=== PATIENT | female | born 1985 | race African-American/Black ===

== ENCOUNTER 2020-08-28 16:38 | Inpatient (IN) | payer MEDICARE, MEDICAID ==
[~2020-08-28] VITALS: Ht 165.1 cm; Wt 112.9 kg
[2020-08-28] MEDS ORDERED: ZOLPIDEM TARTRATE 10 MG TABLET PO PRN (20:45)
[2020-08-28] MEDS ORDERED: HALOPERIDOL 5 MG TABLET PO PRN (20:45)
[2020-08-28] MEDS ORDERED: LORazepam 2 MG TABLET PO PRN (20:45)
[2020-08-28 21:50] VITALS: BP 139/80
[2020-08-29 07:58] LABS: BASOPHILS % (AUTO) 0.9 % (0.0-2.0); HEMATOCRIT 37.5 % (36-46); HEMOGLOBIN 12.4 g/dL (12.0-16.0); LYMPHOCYTES # (AUTO) 1.9 K/uL (1.0-4.8); LYMPHOCYTES % (AUTO) 39.4 % (22.0-44.0); MEAN CORPUSCULAR HEMOGLOBIN 28.6 pg (26.0-34.0); MEAN CORPUSCULAR VOLUME 87 fL (80-100); MONOCYTES # (AUTO) 0.6 K/uL (0.1-1.0); MONOCYTES % (AUTO) 12.4 % (2.0-9.0); NEUTROPHILS % (AUTO) 41.3 % (40.0-70.0); PLATELET COUNT (AUTO) 336 K/uL (150-450); RED BLOOD CELL COUNT(AUTO) 4.33 MIL/uL (4.00-5.20); RED CELL DISTRIBUTION WIDTH 15.5 % (11.5-14.5)
[2020-08-29 08:16] LABS: HEMOGLOBIN A1C 5.8 % (3.8-5.6)
[2020-08-29 08:21] LABS: ALANINE AMINOTRANSFERASE 20 U/L (12-78); ALBUMIN 3.2 g/dL (3.4-5.0); ALKALINE PHOSPHATASE 51 U/L (46-116); ANION GAP 13 mmol/L (8-16); ASPARTATE AMINOTRANSFERASE 12 U/L (15-37); BILIRUBIN,TOTAL 0.8 mg/dL (0.1-1.0); CALCIUM, TOTAL 8.4 mg/dL (8.8-10.5); CARBON DIOXIDE 25 mmol/L (22-29); CHLORIDE 106 mmol/L (98-107); CHOL/HDL RATIO 3.4 (3.9-5.7); CHOLESTEROL 135 mg/dL (131-200); CREATININE 0.66 mg/dL (0.60-1.30); FREE T4 (FREE THYROXINE) 1.28 ng/dL (0.76-1.46); GLOMERULAR FILTR. RATE CALC > 60 mL/min (>60); GLUCOSE,RANDOM 86 mg/dL (70-110); HDL CHOLESTEROL 40 mg/dL (40-60); LDL CHOL (CALC.) 85 mg/dL (0-130); POTASSIUM 4.2 mmol/L (3.5-5.1); SODIUM SERUM 144 mmol/L (136-145); THYROID STIMULATING HORMONE 0.85 uIU/mL (0.36-3.74); TOTAL PROTEIN, SERUM 6.3 g/dL (6.4-8.2); TRIGLYCERIDES 50 mg/dL (15-150); UREA NITROGEN, BLOOD 10 mg/dL (7-18)
[2020-08-29 08:37] VITALS: BP 133/96
[2020-08-29] MEDS ORDERED: OLANZapine 5 MG TABLET PO SCH (10:30)
[2020-08-29] MEDS: OLANZapine 5 MG TABLET PO SCH ×2 (10:42→16:45)
[2020-08-29 16:09] VITALS: BP 107/62
[2020-08-29] MEDS ORDERED: MAGNESIUM HYDROXIDE SUSPENSION 30 ML UDCUP PO PRN (19:45)
[2020-08-29] MEDS ORDERED: ACETAMINOPHEN 325 MG TABLET PO PRN (19:45)
[2020-08-29] MEDS ORDERED: PETROLATUM,WHITE 28 GM JELLY TP PRN (19:45)
[2020-08-29] MEDS ORDERED: MAG HYDROX/AL HYDROX/SIMETH ES 30 ML SUSPENSION UDCUP PO PRN (19:45)
[2020-08-29] MEDS ORDERED: IBUPROFEN 400 MG TABLET PO PRN (19:45)
[2020-08-29] MEDS ORDERED: DOCUSATE SODIUM 100 MG CAPSULE PO PRN (19:45)
[2020-08-29] MEDS ORDERED: CloNIDine HCL 0.1 MG TABLET PO PRN (19:45)
[2020-08-29] MEDS ORDERED: NICOTINE 14 MG/24 HOUR PATCH TD PRN (19:45)
[2020-08-29] MEDS ORDERED: ONDANSETRON HCL 4 MG TABLET PO PRN (19:45)
[2020-08-29] MEDS ORDERED: LOPERAMIDE HCL 2 MG CAPSULE PO PRN (19:45)
[2020-08-29] MEDS ORDERED: GuaiFENesin/D-METHORPHAN [SUGAR-FREE] 200-20MG/10 ML SYRUP UDCUP PO PRN (19:45)
[2020-08-29] MEDS ORDERED: ALBUTEROL SULFATE HFA 90 MCG/PUFF 8 GM INHALER IH PRN (19:45)
[2020-08-30 00:21] VITALS: BP 128/82
[2020-08-30 08:23] VITALS: BP 137/68
[2020-08-30] MEDS: OLANZapine 5 MG TABLET PO SCH ×3 (09:00→18:44)
[2020-08-30 16:14] VITALS: BP 122/67
[2020-08-31 00:08] VITALS: BP 130/76
[2020-08-31] MEDS: OLANZapine 5 MG TABLET PO SCH ×2 (08:03→16:48)
[2020-08-31 08:11] VITALS: BP 148/91
[2020-08-31 12:10] VITALS: BP 137/84
[2020-08-31 16:09] VITALS: BP 124/72
[2020-09-01 00:08] VITALS: BP 138/80
[2020-09-01 08:14] VITALS: BP 152/90
[2020-09-01] MEDS: OLANZapine 5 MG TABLET PO SCH (08:34)
[2020-09-01] MEDS ORDERED: OLAN5TAB2 PO (12:21)
== END 2020-09-01 16:10 | disposition home or self-care (01) | DRG 885 ==
LOC: B2X 20:43
PROVIDERS: ADMIT Psychiatry & Neurology Psychiatry; ATTEND Psychiatry & Neurology Psychiatry
DX: F20.9 Schizophrenia, unspecified (principal); Z68.41 Body mass index [BMI] 40.0-44.9, adult; F94.0 Selective mutism; R73.03 Prediabetes; E83.51 Hypocalcemia; E66.9 Obesity, unspecified; Z59.0 Homelessness
CPT/HCPCS: 83036; 84439; 84443

== ENCOUNTER 2020-09-02 17:53 | Emergency (ER) | payer MEDICARE, MEDICAID ==
[~2020-09-02] VITALS: Ht 172.7 cm; Wt 112.7 kg
[~2020-09-02 17:53] MED LIST: OLAN5TAB2 PO
[2020-09-02] MEDS ORDERED: OLANZapine 5 MG TABLET PO ONE (19:15)
[2020-09-02 19:33] LABS: BASOPHILS % (AUTO) 0.7 % (0.0-2.0); EOSINOPHILS % (AUTO) 2.8 % (1.0-6.0); HEMOGLOBIN 13.7 g/dL (12.0-16.0); LYMPHOCYTES # (AUTO) 2.4 K/uL (1.0-4.8); LYMPHOCYTES % (AUTO) 33.7 % (22.0-44.0); MEAN CORPUSCULAR HEMOGLOBIN 28.8 pg (26.0-34.0); MEAN CORPUSCULAR HGB CONC 33.3 G/dL (31.0-37.0); MEAN CORPUSCULAR VOLUME 86 fL (80-100); MONOCYTES # (AUTO) 0.6 K/uL (0.1-1.0); MONOCYTES % (AUTO) 8.9 % (2.0-9.0); NEUTROPHILS # (AUTO) 3.8 K/uL (1.8-7.7); NEUTROPHILS % (AUTO) 53.9 % (40.0-70.0); PLATELET COUNT (AUTO) 386 K/uL (150-450); RED BLOOD CELL COUNT(AUTO) 4.75 MIL/uL (4.00-5.20); RED CELL DISTRIBUTION WIDTH 15.6 % (11.5-14.5)
[2020-09-02 19:38] LABS: ANION GAP 9 mmol/L (8-16); CALCIUM, TOTAL 9.3 mg/dL (8.8-10.5); CARBON DIOXIDE 28 mmol/L (22-29); CHLORIDE 102 mmol/L (98-107); GLOMERULAR FILTR. RATE CALC > 60 mL/min (>60); GLUCOSE,RANDOM 91 mg/dL (70-110); POTASSIUM 3.7 mmol/L (3.5-5.1); SODIUM SERUM 139 mmol/L (136-145); UREA NITROGEN, BLOOD 7 mg/dL (7-18)
[2020-09-02 19:46] LABS: ALANINE AMINOTRANSFERASE 23 U/L (12-78); ALBUMIN 4.2 g/dL (3.4-5.0); ALKALINE PHOSPHATASE 58 U/L (46-116); ASPARTATE AMINOTRANSFERASE 13 U/L (15-37); BILIRUBIN,TOTAL 1.4 mg/dL (0.1-1.0); HCG,QUANTITATIVE < 1 mIU/mL (0-6)
[2020-09-02 20:20] VITALS: BP 160/92
== END 2020-09-02 20:22 | disposition home or self-care (01) ==
LOC: EMS 17:56
DX: F20.0 Paranoid schizophrenia (principal); F15.10 Other stimulant abuse, uncomplicated; F17.210 Nicotine dependence, cigarettes, uncomplicated
CPT/HCPCS: 36415; 80053; 84702; 85025; 99284; G0480

== ENCOUNTER 2020-12-28 13:14 | Emergency (ER) | payer MEDICAID, MEDICARE ==
[~2020-12-28] VITALS: Ht 160 cm; Wt 86.4 kg
[~2020-12-28 13:14] MED LIST changes: -OLAN5TAB2 PO; +OLAN5TAB52 PO
[2020-12-28 15:00] LABS: BASOPHILS % (AUTO) 1.3 % (0.0-2.0); EOSINOPHILS % (AUTO) 2.6 % (1.0-6.0); HEMOGLOBIN 11.8 g/dL (12.0-16.0); LYMPHOCYTES # (AUTO) 2.5 K/uL (1.0-4.8); MEAN CORPUSCULAR HEMOGLOBIN 28.2 pg (26.0-34.0); MEAN CORPUSCULAR HGB CONC 32.7 G/dL (31.0-37.0); MEAN CORPUSCULAR VOLUME 86 fL (80-100); MONOCYTES # (AUTO) 0.7 K/uL (0.1-1.0); MONOCYTES % (AUTO) 10.9 % (2.0-9.0); NEUTROPHILS # (AUTO) 3.2 K/uL (1.8-7.7); NEUTROPHILS % (AUTO) 48.2 % (40.0-70.0); PLATELET COUNT (AUTO) 403 K/uL (150-450); RED BLOOD CELL COUNT(AUTO) 4.17 MIL/uL (4.00-5.20); RED CELL DISTRIBUTION WIDTH 14.4 % (11.5-14.5)
[2020-12-28 15:04] LABS: ANION GAP 10 mmol/L (8-16); CALCIUM, TOTAL 8.5 mg/dL (8.8-10.5); CARBON DIOXIDE 26 mmol/L (22-29); CHLORIDE 106 mmol/L (98-107); CREATININE 0.73 mg/dL (0.60-1.30); GLOMERULAR FILTR. RATE CALC > 60 mL/min (>60); GLUCOSE,RANDOM 92 mg/dL (70-110); SODIUM SERUM 142 mmol/L (136-145); UREA NITROGEN, BLOOD 12 mg/dL (7-18)
[2020-12-28 15:10] LABS: ALANINE AMINOTRANSFERASE 18 U/L (12-78); ALBUMIN 3.6 g/dL (3.4-5.0); ALKALINE PHOSPHATASE 53 U/L (46-116); ASPARTATE AMINOTRANSFERASE 13 U/L (15-37); BILIRUBIN,TOTAL 0.3 mg/dL (0.1-1.0)
[2020-12-28 16:37] LABS: AMPHET/METH SCREEN,URINE NEGATIVE (NEGATIVE); BARBITURATE SCREEN, URINE NEGATIVE (NEGATIVE); BENZODIAZEPINES SCREEN,URINE NEGATIVE (NEGATIVE); CANNABINOID SCREEN,URINE NEGATIVE (NEGATIVE); COCAINE SCREEN,URINE NEGATIVE (NEGATIVE); METHADONE SCREEN, URINE NEGATIVE (NEGATIVE); OPIATE SCREEN,URINE NEGATIVE (NEGATIVE)
[2020-12-28 16:38] LABS: PHENCYCLIDINE SCREEN,URINE NEGATIVE (NEGATIVE)
[2020-12-28] MEDS ORDERED: ACETAMINOPHEN 500 MG TABLET PO ONE (18:00)
[2020-12-28 18:05] VITALS: BP 127/80
[2020-12-28 18:07] LABS: COVID AG,FIA SOURCE NASOPHARYNGEAL
== END 2020-12-28 18:58 | disposition home or self-care (01) ==
LOC: EMS 13:14
DX: F20.9 Schizophrenia, unspecified (principal); I10 Essential (primary) hypertension; F17.210 Nicotine dependence, cigarettes, uncomplicated; Z20.822 Contact with and (suspected) exposure to COVID-19
CPT/HCPCS: 36415; 80053; 80307; 85025; 87426; 99284; G0480

== ENCOUNTER 2021-01-15 18:16 | Emergency (ER) | payer MEDICAID ==
[~2021-01-15] VITALS: Ht 160 cm; Wt 100.0 kg
[2021-01-15] MEDS ORDERED: QUET100T PO (19:51)
[2021-01-15 20:04] LABS: APPEARANCE,URINE CLEAR (CLEAR); BILIRUBIN,URINE NEGATIVE (NEGATIVE); GLUCOSE, URINE (UA) NEGATIVE (NEGATIVE); KETONES,URINE NEGATIVE (NEGATIVE); LEUKOCYTE ESTERASE ,URINE NEGATIVE (NEGATIVE); NITRATE,URINE NEGATIVE (NEGATIVE); OCCULT BLOOD,URINE NEGATIVE (NEGATIVE); PH,URINE 5.5 (5.0-8.0); PROTEIN,URINE NEGATIVE (NEGATIVE)
[2021-01-15 20:20] LABS: CANNABINOID SCREEN,URINE NEGATIVE (NEGATIVE); METHADONE SCREEN, URINE NEGATIVE (NEGATIVE); OPIATE SCREEN,URINE NEGATIVE (NEGATIVE)
[2021-01-15 20:32] LABS: AMPHET/METH SCREEN,URINE NEGATIVE (NEGATIVE); BARBITURATE SCREEN, URINE NEGATIVE (NEGATIVE); BENZODIAZEPINES SCREEN,URINE NEGATIVE (NEGATIVE); COCAINE SCREEN,URINE NEGATIVE (NEGATIVE)
[2021-01-15 20:36] LABS: PHENCYCLIDINE SCREEN,URINE NEGATIVE (NEGATIVE)
[2021-01-15 20:40] LABS: BASOPHILS % (AUTO) 1.8 % (0.0-2.0); EOSINOPHILS % (AUTO) 4.2 % (1.0-6.0); HEMATOCRIT 34.8 % (36-46); HEMOGLOBIN 11.1 g/dL (12.0-16.0); LYMPHOCYTES # (AUTO) 2.4 K/uL (1.0-4.8); LYMPHOCYTES % (AUTO) 40.4 % (22.0-44.0); MEAN CORPUSCULAR HEMOGLOBIN 27.9 pg (26.0-34.0); MEAN CORPUSCULAR HGB CONC 31.9 G/dL (31.0-37.0); MEAN CORPUSCULAR VOLUME 87 fL (80-100); MONOCYTES # (AUTO) 0.9 K/uL (0.1-1.0); MONOCYTES % (AUTO) 14.5 % (2.0-9.0); NEUTROPHILS # (AUTO) 2.3 K/uL (1.8-7.7); NEUTROPHILS % (AUTO) 39.1 % (40.0-70.0); PLATELET COUNT (AUTO) 336 K/uL (150-450); RED BLOOD CELL COUNT(AUTO) 3.99 MIL/uL (4.00-5.20); RED CELL DISTRIBUTION WIDTH 15.1 % (11.5-14.5)
[2021-01-15 20:46] LABS: ANION GAP 7 mmol/L (8-16); CALCIUM, TOTAL 8.9 mg/dL (8.8-10.5); CARBON DIOXIDE 28 mmol/L (22-29); CHLORIDE 104 mmol/L (98-107); CREATININE 0.77 mg/dL (0.60-1.30); GLOMERULAR FILTR. RATE CALC > 60 mL/min (>60); GLUCOSE,RANDOM 101 mg/dL (70-110); POTASSIUM 3.9 mmol/L (3.5-5.1); SODIUM SERUM 139 mmol/L (136-145); UREA NITROGEN, BLOOD 15 mg/dL (7-18)
[2021-01-15 20:57] LABS: ALANINE AMINOTRANSFERASE 22 U/L (12-78); ALBUMIN 3.6 g/dL (3.4-5.0); ALKALINE PHOSPHATASE 51 U/L (46-116); ASPARTATE AMINOTRANSFERASE 15 U/L (15-37); BILIRUBIN,TOTAL 0.4 mg/dL (0.1-1.0); HCG,QUANTITATIVE < 1 mIU/mL (0-6); LIPASE 101 U/L (73-393); TOTAL PROTEIN, SERUM 6.9 g/dL (6.4-8.2)
[2021-01-15 21:09] LABS: SQUAMOUS EPITHELIAL CELL,UR Few /LPF (None Seen)
[2021-01-15 21:10] LABS: BACTERIA,URINE Rare /HPF (None Seen); RBC,URINE None Seen /HPF (0-2)
[2021-01-15] MEDS ORDERED: OLANZapine 5 MG RAPDIS TABLET PO ONE (21:15)
[2021-01-15 22:18] VITALS: BP 145/1
== END 2021-01-15 21:30 | disposition home or self-care (01) ==
LOC: EMS 18:16
DX: F20.9 Schizophrenia, unspecified (principal); F17.210 Nicotine dependence, cigarettes, uncomplicated; I10 Essential (primary) hypertension; E05.90 Thyrotoxicosis, unspecified without thyrotoxic crisis or storm; Z85.89 Personal history of malignant neoplasm of other organs and systems; Z79.899 Other long term (current) drug therapy
CPT/HCPCS: 36415; 80053; 80307; 81001; 83690; 84702; 85025; 99284; G0480

== ENCOUNTER 2021-04-29 06:31 | Emergency (ER) | payer MEDICAID ==
[~2021-04-29] VITALS: Ht 170.2 cm; Wt 72.7 kg
[~2021-04-29 06:31] MED LIST changes: -OLAN5TAB52 PO; +QUET100T PO
[2021-04-29 07:20] LABS: EOSINOPHILS % (AUTO) 5.7 % (1.0-6.0); HEMATOCRIT 34.3 % (36-46); HEMOGLOBIN 11.3 g/dL (12.0-16.0); LYMPHOCYTES # (AUTO) 1.4 K/uL (1.0-4.8); LYMPHOCYTES % (AUTO) 21.8 % (22.0-44.0); MEAN CORPUSCULAR HEMOGLOBIN 27.8 pg (26.0-34.0); MEAN CORPUSCULAR HGB CONC 32.9 G/dL (31.0-37.0); MEAN CORPUSCULAR VOLUME 85 fL (80-100); MONOCYTES # (AUTO) 0.9 K/uL (0.1-1.0); MONOCYTES % (AUTO) 14.9 % (2.0-9.0); NEUTROPHILS # (AUTO) 3.5 K/uL (1.8-7.7); NEUTROPHILS % (AUTO) 56.6 % (40.0-70.0); PLATELET COUNT (AUTO) 382 K/uL (150-450); RED BLOOD CELL COUNT(AUTO) 4.06 MIL/uL (4.00-5.20); RED CELL DISTRIBUTION WIDTH 16.1 % (11.5-14.5)
[2021-04-29 07:38] LABS: ANION GAP 6 mmol/L (8-16); CALCIUM, TOTAL 9.4 mg/dL (8.8-10.5); CARBON DIOXIDE 30 mmol/L (22-29); CHLORIDE 104 mmol/L (98-107); CREATININE 0.72 mg/dL (0.60-1.30); GLOMERULAR FILTR. RATE CALC > 60 mL/min (>60); GLUCOSE,RANDOM 92 mg/dL (70-110); POTASSIUM 4.7 mmol/L (3.5-5.1); SODIUM SERUM 140 mmol/L (136-145); UREA NITROGEN, BLOOD 13 mg/dL (7-18)
[2021-04-29 07:39] LABS: COVID AG,FIA SOURCE NASOPHARYNGEAL
[2021-04-29 07:49] LABS: ALANINE AMINOTRANSFERASE 33 U/L (12-78); ALBUMIN 3.7 g/dL (3.4-5.0); ALKALINE PHOSPHATASE 57 U/L (46-116); ASPARTATE AMINOTRANSFERASE 19 U/L (15-37); BILIRUBIN,TOTAL 0.3 mg/dL (0.1-1.0); HCG,QUANTITATIVE < 1 mIU/mL (0-6); TOTAL PROTEIN, SERUM 7.2 g/dL (6.4-8.2)
[2021-04-29 08:40] VITALS: BP 124/69
== END 2021-04-29 09:28 | disposition home or self-care (01) ==
LOC: EMS 06:33
DX: F20.9 Schizophrenia, unspecified (principal); F31.9 Bipolar disorder, unspecified; I10 Essential (primary) hypertension; F17.210 Nicotine dependence, cigarettes, uncomplicated; Z20.822 Contact with and (suspected) exposure to COVID-19; Z79.899 Other long term (current) drug therapy
CPT/HCPCS: 36415; 80053; 84702; 85025; 87426; 99284; G0480

== ENCOUNTER 2021-06-24 22:00 | Inpatient (IN) | payer MEDICARE, MEDICAID ==
[~2021-06-24] VITALS: Ht 170.2 cm; Wt 106.1 kg
[2021-06-24 23:41] LABS: BASOPHILS % (AUTO) 1.1 % (0.0-2.0); EOSINOPHILS % (AUTO) 3.8 % (1.0-6.0); HEMATOCRIT 33.6 % (36-46); HEMOGLOBIN 10.7 g/dL (12.0-16.0); LYMPHOCYTES # (AUTO) 2.6 K/uL (1.0-4.8); MEAN CORPUSCULAR HEMOGLOBIN 25.4 pg (26.0-34.0); MEAN CORPUSCULAR HGB CONC 31.8 G/dL (31.0-37.0); MEAN CORPUSCULAR VOLUME 80 fL (80-100); MONOCYTES # (AUTO) 0.8 K/uL (0.1-1.0); MONOCYTES % (AUTO) 13.5 % (2.0-9.0); NEUTROPHILS # (AUTO) 2.5 K/uL (1.8-7.7); NEUTROPHILS % (AUTO) 39.6 % (40.0-70.0); PLATELET COUNT (AUTO) 418 K/uL (150-450); RED CELL DISTRIBUTION WIDTH 16.7 % (11.5-14.5)
[2021-06-24 23:50] LABS: ANION GAP 5 mmol/L (8-16); CALCIUM, TOTAL 9.1 mg/dL (8.8-10.5); CARBON DIOXIDE 27 mmol/L (22-29); CHLORIDE 105 mmol/L (98-107); CREATININE 0.83 mg/dL (0.60-1.30); GLOMERULAR FILTR. RATE CALC > 60 mL/min (>60); GLUCOSE,RANDOM 95 mg/dL (70-110); SODIUM SERUM 137 mmol/L (136-145); UREA NITROGEN, BLOOD 17 mg/dL (7-18)
[2021-06-25 00:01] LABS: ALANINE AMINOTRANSFERASE 51 U/L (12-78); ALBUMIN 3.8 g/dL (3.4-5.0); ALKALINE PHOSPHATASE 59 U/L (46-116); ASPARTATE AMINOTRANSFERASE 24 U/L (15-37); BILIRUBIN,TOTAL 0.5 mg/dL (0.1-1.0); HCG,QUANTITATIVE < 1 mIU/mL (0-6); TOTAL PROTEIN, SERUM 7.3 g/dL (6.4-8.2)
[2021-06-25 03:35] LABS: COVID AG,FIA SOURCE NASOPHARYNGEAL
[2021-06-25] MEDS ORDERED: INFLUENZA VIRUS VACCINE QVS 2021-22 (6MO+)/PF 60 MCG/0.5 ML SYRINGE IM. ONE (04:45)
[2021-06-25] MEDS ORDERED: ACETAMINOPHEN 325 MG TABLET PO PRN (06:15)
[2021-06-25] MEDS ORDERED: PETROLATUM,WHITE 28 GM JELLY TP PRN (06:15)
[2021-06-25] MEDS ORDERED: LOPERAMIDE HCL 2 MG CAPSULE PO PRN (06:15)
[2021-06-25] MEDS ORDERED: DOCUSATE SODIUM 100 MG CAPSULE PO PRN (06:15)
[2021-06-25] MEDS ORDERED: BENZOCAINE/MENTHOL LOZENGE PO PRN (06:15)
[2021-06-25] MEDS ORDERED: ONDANSETRON HCL 4 MG TABLET PO PRN (06:15)
[2021-06-25] MEDS ORDERED: MAG HYDROX/AL HYDROX/SIMETH ES 30 ML SUSPENSION UDCUP PO PRN (06:15)
[2021-06-25] MEDS ORDERED: BACITRACIN 28 GM OINTMENT TP PRN (06:15)
[2021-06-25] MEDS ORDERED: MAGNESIUM HYDROXIDE SUSPENSION 30 ML UDCUP PO PRN (06:15)
[2021-06-25] MEDS ORDERED: OMEPRAZOLE 20 MG CAPSULE PO PRN (06:15)
[2021-06-25] MEDS ORDERED: CloNIDine HCL 0.1 MG TABLET PO PRN (06:15)
[2021-06-25] MEDS ORDERED: IBUPROFEN 600 MG TABLET PO PRN (06:15)
[2021-06-25] MEDS ORDERED: ALBUTEROL SULFATE HFA 90 MCG/PUFF 8 GM INHALER IH PRN (06:15)
[2021-06-25 16:02] VITALS: BP 146/84
[2021-06-26 05:56] VITALS: BP 132/81
[2021-06-26 07:52] LABS: CHOL/HDL RATIO 3.5 (3.9-5.7)
[2021-06-26 08:04] VITALS: BP 131/85
[2021-06-26 16:01] VITALS: BP 134/75
[2021-06-26] MEDS: QUEtiapine FUMARATE 300 MG TABLET PO SCH ×2 (20:28→20:41)
[2021-06-27 01:00] VITALS: BP 132/72
[2021-06-27 08:22] VITALS: BP 110/68
[2021-06-27] MEDS: LORazepam 2 MG TABLET PO PRN (10:28)
[2021-06-27 16:07] VITALS: BP 115/60
[2021-06-27] MEDS: QUEtiapine FUMARATE 300 MG TABLET PO SCH (20:03)
[2021-06-28 06:04] VITALS: BP 112/62
[2021-06-28 08:14] VITALS: BP 153/91
[2021-06-28 16:40] VITALS: BP 124/74
[2021-06-28] MEDS: LORazepam 2 MG TABLET PO PRN (16:54)
[2021-06-28] MEDS: HALOPERIDOL 5 MG TABLET PO PRN (16:54)
[2021-06-28] MEDS: QUEtiapine FUMARATE 300 MG TABLET PO SCH (20:03)
[2021-06-29 06:42] VITALS: BP 137/83
[2021-06-29 07:30] VITALS: BP 137/83
[2021-06-29] MEDS: HALOPERIDOL 5 MG TABLET PO PRN ×2 (12:24→12:56)
[2021-06-29] MEDS: LORazepam 2 MG TABLET PO PRN ×2 (12:24→12:56)
[2021-06-29 16:09] VITALS: BP 140/70
[2021-06-29] MEDS: QUEtiapine FUMARATE 300 MG TABLET PO SCH (20:30)
[2021-06-30 06:26] VITALS: BP 128/74
[2021-06-30 08:51] LABS: GLUCOMETER DEV NAME(LOC) POC.BV
[2021-06-30 11:49] VITALS: BP 137/89
[2021-06-30] MEDS: HALOPERIDOL 5 MG TABLET PO PRN (13:43)
[2021-06-30] MEDS: LORazepam 2 MG TABLET PO PRN (13:43)
[2021-06-30 16:06] VITALS: BP 147/96
[2021-06-30] MEDS: QUEtiapine FUMARATE 200 MG TABLET PO SCH (20:10)
[2021-06-30] MEDS ORDERED: QUEtiapine FUMARATE 200 MG TABLET PO SCH (21:00)
[2021-07-01 06:24] VITALS: BP 131/63
[2021-07-01] MEDS: QUEtiapine FUMARATE 200 MG TABLET PO SCH ×2 (07:36→20:10)
[2021-07-01 08:05] VITALS: BP 127/78
[2021-07-01] MEDS: LORazepam 2 MG TABLET PO PRN (13:58)
[2021-07-01] MEDS: HALOPERIDOL 5 MG TABLET PO PRN (13:58)
[2021-07-01 15:31] VITALS: BP 127/75
[2021-07-01 16:47] VITALS: BP 127/75
[2021-07-01] MEDS: ZOLPIDEM TARTRATE 10 MG TABLET PO PRN (20:09)
[2021-07-02 08:05] VITALS: BP 119/70
[2021-07-02] MEDS: QUEtiapine FUMARATE 200 MG TABLET PO SCH ×2 (08:08→20:36)
[2021-07-02 16:03] VITALS: BP 147/83
[2021-07-03 04:04] VITALS: BP 138/82
[2021-07-03 08:02] VITALS: BP 117/62
[2021-07-03] MEDS: QUEtiapine FUMARATE 200 MG TABLET PO SCH ×2 (08:05→20:49)
[2021-07-03] MEDS: HALOPERIDOL 5 MG TABLET PO PRN (08:05)
[2021-07-03] MEDS: LORazepam 2 MG TABLET PO PRN (13:17)
[2021-07-03 15:59] VITALS: BP 140/90
[2021-07-03 20:39] VITALS: BP 140/90
[2021-07-04 01:54] VITALS: BP 135/78
[2021-07-04 08:36] VITALS: BP 107/63
[2021-07-04] MEDS: QUEtiapine FUMARATE 200 MG TABLET PO SCH ×2 (08:44→20:39)
[2021-07-04] MEDS: HALOPERIDOL 5 MG TABLET PO PRN (09:29)
[2021-07-04] MEDS: LORazepam 2 MG TABLET PO PRN (09:29)
[2021-07-04 10:06] LABS: GLUCOMETER DEV NAME(LOC) POC.BV
[2021-07-04 16:16] VITALS: BP 120/71
[2021-07-05 05:37] VITALS: BP 122/63
[2021-07-05 08:07] VITALS: BP 133/83
[2021-07-05] MEDS: QUEtiapine FUMARATE 200 MG TABLET PO SCH ×2 (08:26→20:24)
[2021-07-05 16:04] VITALS: BP 127/70
[2021-07-06 05:35] VITALS: BP 132/84
[2021-07-06] MEDS: QUEtiapine FUMARATE 200 MG TABLET PO SCH ×2 (08:03→20:12)
[2021-07-06 08:05] VITALS: BP 113/84
[2021-07-06 16:05] VITALS: BP 144/94
[2021-07-07 06:49] VITALS: BP 142/88
[2021-07-07 08:15] VITALS: BP 143/88
[2021-07-07] MEDS: QUEtiapine FUMARATE 200 MG TABLET PO SCH ×2 (08:19→20:12)
[2021-07-07 12:46] LABS: GLUCOMETER DEV NAME(LOC) POC.BV
[2021-07-07] MEDS: LORazepam 2 MG TABLET PO PRN (14:47)
[2021-07-07 16:07] VITALS: BP 117/79
[2021-07-08 00:10] VITALS: BP 127/69
[2021-07-08 08:22] VITALS: BP 128/68
[2021-07-08] MEDS: QUEtiapine FUMARATE 200 MG TABLET PO SCH ×2 (08:47→21:00)
[2021-07-08] MEDS: LORazepam 2 MG TABLET PO PRN (09:16)
[2021-07-08] MEDS: HALOPERIDOL 5 MG TABLET PO PRN (09:20)
[2021-07-08 16:02] VITALS: BP 127/69
[2021-07-09 00:30] VITALS: BP 120/69
[2021-07-09] MEDS: QUEtiapine FUMARATE 200 MG TABLET PO SCH ×2 (07:37→20:15)
[2021-07-09] MEDS: LORazepam 2 MG TABLET PO PRN ×2 (08:29→12:52)
[2021-07-09 08:30] VITALS: BP 125/75
[2021-07-09] MEDS: HALOPERIDOL 5 MG TABLET PO PRN (12:52)
[2021-07-09 16:11] VITALS: BP 142/82
[2021-07-10 00:11] VITALS: BP 129/78
[2021-07-10] MEDS: QUEtiapine FUMARATE 200 MG TABLET PO SCH ×2 (07:38→20:18)
[2021-07-10 09:07] VITALS: BP 132/70
[2021-07-10] MEDS: LORazepam 2 MG TABLET PO PRN (12:44)
[2021-07-10] MEDS: HALOPERIDOL 5 MG TABLET PO PRN (12:44)
[2021-07-10 16:04] VITALS: BP 151/72
[2021-07-11 06:39] VITALS: BP 120/70
[2021-07-11 08:09] VITALS: BP 137/81
[2021-07-11] MEDS: HALOPERIDOL 5 MG TABLET PO PRN ×2 (08:25→16:56)
[2021-07-11] MEDS: LORazepam 2 MG TABLET PO PRN ×2 (08:25→16:56)
[2021-07-11] MEDS: QUEtiapine FUMARATE 200 MG TABLET PO SCH ×2 (08:26→20:02)
[2021-07-11 16:14] VITALS: BP 121/65
[2021-07-11] MEDS: ZOLPIDEM TARTRATE 10 MG TABLET PO PRN (20:02)
[2021-07-12 06:25] VITALS: BP 145/83
[2021-07-12] MEDS: QUEtiapine FUMARATE 200 MG TABLET PO SCH ×2 (08:12→20:28)
[2021-07-12 08:15] VITALS: BP 135/76
[2021-07-12] MEDS: LORazepam 2 MG TABLET PO PRN (11:04)
[2021-07-12] MEDS: HALOPERIDOL 5 MG TABLET PO PRN (11:04)
[2021-07-12 16:07] VITALS: BP 129/72
[2021-07-13 05:36] VITALS: BP 127/78
[2021-07-13] MEDS: QUEtiapine FUMARATE 200 MG TABLET PO SCH (08:06)
[2021-07-13] MEDS ORDERED: QUET200T30 PO (10:01)
== END 2021-07-13 11:39 | disposition home or self-care (01) | DRG 885 ==
LOC: EMS 22:02 → B2X 06-25 02:30
PROVIDERS: ADMIT Psychiatry & Neurology Psychiatry; ATTEND Psychiatry & Neurology Psychiatry
DX: F25.9 Schizoaffective disorder, unspecified (principal); R45.851 Suicidal ideations; F32.9 Major depressive disorder, single episode, unspecified; F10.10 Alcohol abuse, uncomplicated; F12.10 Cannabis abuse, uncomplicated; G47.00 Insomnia, unspecified; I10 Essential (primary) hypertension; K59.00 Constipation, unspecified; F17.201 Nicotine dependence, unspecified, in remission; Z20.822 Contact with and (suspected) exposure to COVID-19; Z85.89 Personal history of malignant neoplasm of other organs and systems; Z79.899 Other long term (current) drug therapy
CPT/HCPCS: 80053; 80061; 84702; 85025; 99285; G0480

== ENCOUNTER 2021-07-17 18:57 | Inpatient (IN) | payer MEDICARE, MEDICAID ==
[~2021-07-17] VITALS: Ht 165.1 cm; Wt 228.1 kg
[~2021-07-17 18:57] MED LIST changes: -QUET100T PO; +QUET200T30 PO
[2021-07-17 19:27] LABS: BASOPHILS % (AUTO) 1.5 % (0.0-2.0); EOSINOPHILS % (AUTO) 2.6 % (1.0-6.0); HEMATOCRIT 32.6 % (36-46); HEMOGLOBIN 10.6 g/dL (12.0-16.0); LYMPHOCYTES # (AUTO) 2.9 K/uL (1.0-4.8); MEAN CORPUSCULAR HEMOGLOBIN 25.2 pg (26.0-34.0); MEAN CORPUSCULAR HGB CONC 32.4 G/dL (31.0-37.0); MEAN CORPUSCULAR VOLUME 78 fL (80-100); MONOCYTES % (AUTO) 13.1 % (2.0-9.0); NEUTROPHILS # (AUTO) 3.4 K/uL (1.8-7.7); NEUTROPHILS % (AUTO) 44.8 % (40.0-70.0); PLATELET COUNT (AUTO) 396 K/uL (150-450); RED CELL DISTRIBUTION WIDTH 18.4 % (11.5-14.5)
[2021-07-17 19:37] LABS: ANION GAP 9 mmol/L (8-16); CALCIUM, TOTAL 9.3 mg/dL (8.8-10.5); CARBON DIOXIDE 28 mmol/L (22-29); CHLORIDE 103 mmol/L (98-107); CREATININE 0.78 mg/dL (0.60-1.30); GLOMERULAR FILTR. RATE CALC > 60 mL/min (>60); GLUCOSE,RANDOM 108 mg/dL (70-110); POTASSIUM 3.8 mmol/L (3.5-5.1); SODIUM SERUM 140 mmol/L (136-145); UREA NITROGEN, BLOOD 9 mg/dL (7-18)
[2021-07-17 19:48] LABS: ALANINE AMINOTRANSFERASE 28 U/L (12-78); ALBUMIN 3.9 g/dL (3.4-5.0); ALKALINE PHOSPHATASE 62 U/L (46-116); ASPARTATE AMINOTRANSFERASE 15 U/L (15-37); BILIRUBIN,TOTAL 0.4 mg/dL (0.1-1.0); HCG,QUANTITATIVE < 1 mIU/mL (0-6); TOTAL PROTEIN, SERUM 7.7 g/dL (6.4-8.2)
[2021-07-17 20:04] LABS: COVID AG,FIA SOURCE NASAL SWAB
[2021-07-17] MEDS ORDERED: LORazepam 2 MG TABLET PO ONE (21:30)
[2021-07-17] MEDS ORDERED: HALOPERIDOL 5 MG TABLET PO ONE (21:30)
[2021-07-17] MEDS ORDERED: DiphenhydrAMINE HCL 50 MG CAPSULE PO ONE (21:30)
[2021-07-18] MEDS ORDERED: ZOLPIDEM TARTRATE 10 MG TABLET PO PRN (00:30)
[2021-07-18 10:20] VITALS: BP 135/88
[2021-07-18 10:33] VITALS: BP 135/88
[2021-07-18] MEDS ORDERED: MAG HYDROX/AL HYDROX/SIMETH ES 30 ML SUSPENSION UDCUP PO PRN (11:45)
[2021-07-18] MEDS ORDERED: PETROLATUM,WHITE 28 GM JELLY TP PRN (11:45)
[2021-07-18] MEDS ORDERED: ALBUTEROL SULFATE HFA 90 MCG/PUFF 8 GM INHALER IH PRN (11:45)
[2021-07-18] MEDS ORDERED: CloNIDine HCL 0.1 MG TABLET PO PRN (11:45)
[2021-07-18] MEDS ORDERED: BENZOCAINE/MENTHOL LOZENGE PO PRN (11:45)
[2021-07-18] MEDS ORDERED: NICOTINE 21 MG/24 HOUR PATCH TD ONE (11:45)
[2021-07-18] MEDS ORDERED: MAGNESIUM HYDROXIDE SUSPENSION 30 ML UDCUP PO PRN (11:45)
[2021-07-18] MEDS ORDERED: IBUPROFEN 600 MG TABLET PO PRN (11:45)
[2021-07-18] MEDS ORDERED: BACITRACIN 28 GM OINTMENT TP PRN (11:45)
[2021-07-18] MEDS ORDERED: ONDANSETRON HCL 4 MG TABLET PO PRN (11:45)
[2021-07-18] MEDS ORDERED: LOPERAMIDE HCL 2 MG CAPSULE PO PRN (11:45)
[2021-07-18] MEDS: ACETAMINOPHEN 325 MG TABLET PO PRN ×2 (12:03→20:22)
[2021-07-18] MEDS: DICLOFENAC SODIUM 1% 100 GM GEL [2GM] TP SCH (16:21)
[2021-07-18] MEDS: HALOPERIDOL 5 MG TABLET PO PRN (16:22)
[2021-07-18 17:11] VITALS: BP 127/82
[2021-07-18 17:13] VITALS: BP 127/82
[2021-07-18 20:22] VITALS: BP 130/83
[2021-07-18 21:22] VITALS: BP 129/81
[2021-07-19 08:10] VITALS: BP 148/92
[2021-07-19] MEDS: DOCUSATE SODIUM 100 MG CAPSULE PO SCH (08:41)
[2021-07-19] MEDS: OMEPRAZOLE 20 MG CAPSULE PO SCH (08:41)
[2021-07-19 09:00] VITALS: BP 148/92
[2021-07-19] MEDS: DICLOFENAC SODIUM 1% 100 GM GEL [2GM] TP SCH ×2 (09:00→17:14)
[2021-07-19] MEDS: LORazepam 2 MG TABLET PO PRN ×2 (10:06→18:00)
[2021-07-19] MEDS: HALOPERIDOL 5 MG TABLET PO PRN ×2 (10:06→18:00)
[2021-07-19] MEDS: QUEtiapine FUMARATE 200 MG TABLET PO SCH (20:39)
[2021-07-20] MEDS: OMEPRAZOLE 20 MG CAPSULE PO SCH (08:57)
[2021-07-20] MEDS: QUEtiapine FUMARATE 200 MG TABLET PO SCH ×2 (08:57→21:03)
[2021-07-20] MEDS: DOCUSATE SODIUM 100 MG CAPSULE PO SCH (08:57)
[2021-07-20] MEDS: DICLOFENAC SODIUM 1% 100 GM GEL [2GM] TP SCH ×2 (08:58→16:37)
[2021-07-20 09:30] VITALS: BP 141/81
[2021-07-20 09:46] VITALS: BP 141/81
[2021-07-20 17:04] VITALS: BP 139/89
[2021-07-20 19:35] VITALS: BP 140/78
[2021-07-20] MEDS: LORazepam 2 MG TABLET PO PRN (19:35)
[2021-07-20] MEDS: HALOPERIDOL 5 MG TABLET PO PRN (19:35)
[2021-07-21 08:08] VITALS: BP 142/87
[2021-07-21] MEDS: QUEtiapine FUMARATE 200 MG TABLET PO SCH ×2 (08:31→21:02)
[2021-07-21] MEDS: OMEPRAZOLE 20 MG CAPSULE PO SCH (08:31)
[2021-07-21] MEDS: DOCUSATE SODIUM 100 MG CAPSULE PO SCH (08:32)
[2021-07-21] MEDS: DICLOFENAC SODIUM 1% 100 GM GEL [2GM] TP SCH (08:34)
[2021-07-21] MEDS ORDERED: LORazepam 2 MG/ML VIAL IM ONE (12:15)
[2021-07-21] MEDS ORDERED: HALOPERIDOL LACTATE 5 MG/ML VIAL IM ONE (12:15)
[2021-07-21] MEDS ORDERED: DiphenhydrAMINE HCL 50 MG/ML VIAL IM ONE (12:15)
[2021-07-21] MEDS ORDERED: LORazepam 2 MG/ML VIAL ONE (12:17)
[2021-07-21] MEDS ORDERED: HALOPERIDOL LACTATE 5 MG/ML VIAL ONE (12:17)
[2021-07-21] MEDS ORDERED: DiphenhydrAMINE HCL 50 MG/ML VIAL ONE (12:17)
[2021-07-21 16:00] VITALS: BP 149/91
[2021-07-22 08:05] VITALS: BP 151/94
[2021-07-22] MEDS: DOCUSATE SODIUM 100 MG CAPSULE PO SCH (09:00)
[2021-07-22] MEDS: QUEtiapine FUMARATE 200 MG TABLET PO SCH ×2 (09:39→20:54)
[2021-07-22] MEDS: OMEPRAZOLE 20 MG CAPSULE PO SCH (09:39)
[2021-07-22] MEDS: LORazepam 2 MG TABLET PO PRN ×2 (09:43→19:30)
[2021-07-22 16:11] VITALS: BP 147/88
[2021-07-22] MEDS: HALOPERIDOL 5 MG TABLET PO PRN (19:30)
[2021-07-23] MEDS: LORazepam 2 MG TABLET PO PRN ×2 (08:19→16:00)
[2021-07-23] MEDS: QUEtiapine FUMARATE 200 MG TABLET PO SCH ×2 (08:19→21:00)
[2021-07-23] MEDS: OMEPRAZOLE 20 MG CAPSULE PO SCH (08:19)
[2021-07-23] MEDS: DOCUSATE SODIUM 100 MG CAPSULE PO SCH (08:19)
[2021-07-23 12:45] VITALS: BP 140/96
[2021-07-23] MEDS: HALOPERIDOL 5 MG TABLET PO PRN (16:00)
[2021-07-23 16:08] VITALS: BP 140/90
[2021-07-24] MEDS: OMEPRAZOLE 20 MG CAPSULE PO SCH ×2 (09:00→09:05)
[2021-07-24] MEDS: QUEtiapine FUMARATE 200 MG TABLET PO SCH ×3 (09:00→21:15)
[2021-07-24] MEDS ORDERED: HALOPERIDOL LACTATE 5 MG/ML VIAL IM ONE (09:00)
[2021-07-24] MEDS ORDERED: LORazepam 2 MG/ML VIAL IM ONE (09:00)
[2021-07-24] MEDS: DOCUSATE SODIUM 100 MG CAPSULE PO SCH ×2 (09:00→09:05)
[2021-07-24 09:40] VITALS: BP 145/98
[2021-07-24 14:59] LABS: COVID AG,FIA SOURCE NASOPHARYNGEAL
[2021-07-24 17:10] VITALS: BP 148/80
[2021-07-24] MEDS: LORazepam 2 MG TABLET PO PRN (17:51)
[2021-07-24] MEDS: HALOPERIDOL 5 MG TABLET PO PRN (17:51)
[2021-07-25 08:00] VITALS: BP 93/66
[2021-07-25] MEDS: QUEtiapine FUMARATE 200 MG TABLET PO SCH ×2 (08:53→20:47)
[2021-07-25] MEDS: OMEPRAZOLE 20 MG CAPSULE PO SCH (08:53)
[2021-07-25] MEDS: DOCUSATE SODIUM 100 MG CAPSULE PO SCH (08:55)
[2021-07-25] MEDS: LORazepam 2 MG TABLET PO PRN (16:31)
[2021-07-25 16:33] VITALS: BP 142/96
[2021-07-26] MEDS: OMEPRAZOLE 20 MG CAPSULE PO SCH (08:35)
[2021-07-26] MEDS: QUEtiapine FUMARATE 200 MG TABLET PO SCH ×2 (08:35→20:12)
[2021-07-26 08:36] VITALS: BP 153/98
[2021-07-26] MEDS: DOCUSATE SODIUM 100 MG CAPSULE PO SCH (08:37)
[2021-07-26 16:09] VITALS: BP 161/93
[2021-07-26] MEDS: LORazepam 2 MG TABLET PO PRN ×2 (16:20→23:44)
[2021-07-26] MEDS: HALOPERIDOL 5 MG TABLET PO PRN (16:20)
[2021-07-26 18:41] VITALS: BP 159/94
[2021-07-26 23:44] VITALS: BP 163/97
[2021-07-27] MEDS: DOCUSATE SODIUM 100 MG CAPSULE PO SCH (08:11)
[2021-07-27] MEDS: QUEtiapine FUMARATE 200 MG TABLET PO SCH (08:11)
[2021-07-27] MEDS: OMEPRAZOLE 20 MG CAPSULE PO SCH (08:11)
[2021-07-27 09:25] VITALS: BP 147/93
[2021-07-27 10:25] VITALS: BP 149/90
[2021-07-27] MEDS: ACETAMINOPHEN 325 MG TABLET PO PRN (10:25)
[2021-07-27] MEDS ORDERED: QUET200T30 PO (12:32)
== END 2021-07-27 13:50 | disposition home or self-care (01) | DRG 885 ==
LOC: EMS 19:14 → 3EX 07-18 06:36
PROVIDERS: ADMIT Psychiatry & Neurology Psychiatry; ATTEND Psychiatry & Neurology Psychiatry
DX: F20.9 Schizophrenia, unspecified (principal); F15.90 Other stimulant use, unspecified, uncomplicated; F10.10 Alcohol abuse, uncomplicated; F12.10 Cannabis abuse, uncomplicated; F14.90 Cocaine use, unspecified, uncomplicated; F41.9 Anxiety disorder, unspecified; G47.00 Insomnia, unspecified; I10 Essential (primary) hypertension; K59.00 Constipation, unspecified; F17.210 Nicotine dependence, cigarettes, uncomplicated; Z20.822 Contact with and (suspected) exposure to COVID-19; Z79.899 Other long term (current) drug therapy; Z85.89 Personal history of malignant neoplasm of other organs and systems
CPT/HCPCS: 80053; 80061; 84702; 85025; 87081; 99285; G0378; G0480; J1200; J1630; J2060

== ENCOUNTER 2021-12-22 22:08 | Emergency (ER) | payer MEDICAID, MEDICARE ==
[2021-12-23] MEDS ORDERED: HALOPERIDOL 5 MG TABLET PO ONE
[2021-12-23 00:04] LABS: COVID AG,FIA SOURCE NASOPHARYNGEAL
[2021-12-23 00:11] LABS: EOSINOPHILS % (AUTO) 2.8 % (1.0-6.0); HEMATOCRIT 28.3 % (36-46); HEMOGLOBIN 9.3 g/dL (12.0-16.0); LYMPHOCYTES # (AUTO) 2.7 K/uL (1.0-4.8); LYMPHOCYTES % (AUTO) 44.4 % (22.0-44.0); MEAN CORPUSCULAR HEMOGLOBIN 25.7 pg (26.0-34.0); MEAN CORPUSCULAR VOLUME 78 fL (80-100); MONOCYTES # (AUTO) 0.7 K/uL (0.1-1.0); MONOCYTES % (AUTO) 11.8 % (2.0-9.0); NEUTROPHILS # (AUTO) 2.4 K/uL (1.8-7.7); PLATELET COUNT (AUTO) 345 K/uL (150-450); RED BLOOD CELL COUNT(AUTO) 3.62 MIL/uL (4.00-5.20); RED CELL DISTRIBUTION WIDTH 18.5 % (11.5-14.5)
[2021-12-23 00:30] LABS: ALANINE AMINOTRANSFERASE 22 U/L (12-78); ALBUMIN 3.2 g/dL (3.4-5.0); ALKALINE PHOSPHATASE 66 U/L (46-116); ANION GAP 11 mmol/L (8-16); ASPARTATE AMINOTRANSFERASE 16 U/L (15-37); BILIRUBIN,TOTAL 0.4 mg/dL (0.1-1.0); CALCIUM, TOTAL 8.4 mg/dL (8.8-10.5); CARBON DIOXIDE 26 mmol/L (22-29); CHLORIDE 106 mmol/L (98-107); CREATININE 0.91 mg/dL (0.60-1.30); GLUCOSE,RANDOM 119 mg/dL (70-110); HCG,QUANTITATIVE < 1 mIU/mL (0-6); POTASSIUM 3.9 mmol/L (3.5-5.1); SODIUM SERUM 143 mmol/L (136-145); TOTAL PROTEIN, SERUM 6.1 g/dL (6.4-8.2); UREA NITROGEN, BLOOD 14 mg/dL (7-18)
[2021-12-23 00:35] LABS: GLOMERULAR FILTR. RATE CALC > 60 mL/min (>60)
[2021-12-23 03:20] VITALS: BP 110/87
== END 2021-12-23 04:20 | disposition home or self-care (01) ==
LOC: EMS 22:25
DX: R45.851 Suicidal ideations (principal); F17.210 Nicotine dependence, cigarettes, uncomplicated; F20.9 Schizophrenia, unspecified; Z79.899 Other long term (current) drug therapy; Z20.822 Contact with and (suspected) exposure to COVID-19
CPT/HCPCS: 99284; 87426; 80053; 84702; 85025; G0480

== ENCOUNTER 2022-01-19 04:19 | Emergency (ER) | payer MEDICAID ==
[~2022-01-19] VITALS: Ht 165.1 cm; Wt 123.0 kg
[2022-01-19 08:10] VITALS: BP 121/66
== END 2022-01-19 09:37 | disposition home or self-care (01) ==
LOC: EMS 04:19
DX: F20.9 Schizophrenia, unspecified (principal); Z59.00 Homelessness unspecified; F17.210 Nicotine dependence, cigarettes, uncomplicated; Z85.831 Personal history of malignant neoplasm of soft tissue; Z88.8 Allergy status to other drugs, medicaments and biological substances
CPT/HCPCS: 99283; Z7502

== ENCOUNTER 2022-02-10 15:29 | Inpatient (IN) | payer MEDICARE, MEDICAID ==
[~2022-02-10] VITALS: Ht 165.1 cm; Wt 118.4 kg
[2022-02-10] MEDS ORDERED: LORazepam 2 MG TABLET PO PRN (21:30)
[2022-02-10 21:45] VITALS: BP 100/75
[2022-02-11 08:17] VITALS: BP 118/70
[2022-02-11] MEDS ORDERED: PETROLATUM,WHITE 28 GM JELLY TP PRN (21:30)
[2022-02-11] MEDS ORDERED: BENZOCAINE/MENTHOL LOZENGE PO PRN (21:30)
[2022-02-11] MEDS ORDERED: ONDANSETRON HCL 4 MG TABLET PO PRN (21:30)
[2022-02-11] MEDS ORDERED: MAG HYDROX/AL HYDROX/SIMETH ES 30 ML SUSPENSION UDCUP PO PRN (21:30)
[2022-02-11] MEDS ORDERED: ALBUTEROL SULFATE HFA 90 MCG/PUFF 8 GM INHALER IH PRN (21:30)
[2022-02-11] MEDS ORDERED: LOPERAMIDE HCL 2 MG CAPSULE PO PRN (21:30)
[2022-02-11] MEDS ORDERED: BACITRACIN 28 GM OINTMENT TP PRN (21:30)
[2022-02-11] MEDS ORDERED: DOCUSATE SODIUM 100 MG CAPSULE PO PRN (21:30)
[2022-02-11] MEDS ORDERED: CloNIDine HCL 0.1 MG TABLET PO PRN (21:30)
[2022-02-11] MEDS ORDERED: MAGNESIUM HYDROXIDE SUSPENSION 30 ML UDCUP PO PRN (21:30)
[2022-02-11] MEDS ORDERED: OMEPRAZOLE 20 MG CAPSULE PO PRN (21:30)
[2022-02-12 07:19] LABS: BASOPHILS % (AUTO) 1.4 % (0.0-2.0); EOSINOPHILS % (AUTO) 3.9 % (1.0-6.0); HEMATOCRIT 32.9 % (36-46); HEMOGLOBIN 10.4 g/dL (12.0-16.0); LYMPHOCYTES # (AUTO) 2.1 K/uL (1.0-4.8); LYMPHOCYTES % (AUTO) 43.5 % (22.0-44.0); MEAN CORPUSCULAR HEMOGLOBIN 24.4 pg (26.0-34.0); MEAN CORPUSCULAR HGB CONC 31.5 G/dL (31.0-37.0); MEAN CORPUSCULAR VOLUME 78 fL (80-100); MONOCYTES # (AUTO) 0.6 K/uL (0.1-1.0); MONOCYTES % (AUTO) 13.2 % (2.0-9.0); NEUTROPHILS # (AUTO) 1.8 K/uL (1.8-7.7); PLATELET COUNT (AUTO) 357 K/uL (150-450); RED BLOOD CELL COUNT(AUTO) 4.24 MIL/uL (4.00-5.20); RED CELL DISTRIBUTION WIDTH 17.6 % (11.5-14.5)
[2022-02-12 07:26] LABS: HEMOGLOBIN A1C 5.7 % (3.8-5.6)
[2022-02-12 07:50] LABS: ALANINE AMINOTRANSFERASE 21 U/L (12-78); ALBUMIN 3.4 g/dL (3.4-5.0); ALKALINE PHOSPHATASE 43 U/L (46-116); ANION GAP 6 mmol/L (8-16); ASPARTATE AMINOTRANSFERASE 18 U/L (15-37); BILIRUBIN,TOTAL 0.6 mg/dL (0.1-1.0); CALCIUM, TOTAL 8.6 mg/dL (8.8-10.5); CARBON DIOXIDE 27 mmol/L (22-29); CHLORIDE 107 mmol/L (98-107); CHOL/HDL RATIO 3.7 (3.9-5.7); CHOLESTEROL 149 mg/dL (131-200); CREATININE 0.72 mg/dL (0.60-1.30); FREE T4 (FREE THYROXINE) 1.16 ng/dL (0.76-1.46); GLUCOSE,RANDOM 89 mg/dL (70-110); HCG,QUANTITATIVE < 1 mIU/mL (0-6); HDL CHOLESTEROL 40 mg/dL (40-60); LDL CHOL (CALC.) 96 mg/dL (0-130); POTASSIUM 3.7 mmol/L (3.5-5.1); SODIUM SERUM 140 mmol/L (136-145); THYROID STIMULATING HORMONE 0.99 uIU/mL (0.36-3.74); TOTAL PROTEIN, SERUM 6.5 g/dL (6.4-8.2); TRIGLYCERIDES 63 mg/dL (15-150); UREA NITROGEN, BLOOD 11 mg/dL (7-18)
[2022-02-12 07:52] LABS: GLOMERULAR FILTR. RATE CALC > 60 mL/min (>60)
[2022-02-12 08:36] VITALS: BP 127/78
[2022-02-12] MEDS: IBUPROFEN 600 MG TABLET PO PRN (08:59)
[2022-02-12] MEDS ORDERED: RisperiDONE 3 MG TABLET PO SCH (09:00)
[2022-02-12] MEDS ORDERED: DIVALPROEX SODIUM 500 MG DR TABLET PO SCH (09:00)
[2022-02-12] MEDS: QUEtiapine FUMARATE 200 MG TABLET PO SCH ×2 (10:10→20:20)
[2022-02-13 08:17] VITALS: BP 126/82
[2022-02-13] MEDS: QUEtiapine FUMARATE 200 MG TABLET PO SCH ×2 (08:45→20:32)
[2022-02-13 21:22] VITALS: BP 124/85
[2022-02-14 08:55] VITALS: BP 133/88
[2022-02-14] MEDS: QUEtiapine FUMARATE 200 MG TABLET PO SCH ×2 (09:12→20:32)
[2022-02-14 21:29] VITALS: BP 132/86
[2022-02-15 08:00] VITALS: BP 128/70
[2022-02-15] MEDS: QUEtiapine FUMARATE 200 MG TABLET PO SCH ×2 (09:45→20:29)
[2022-02-15] MEDS: HALOPERIDOL 5 MG TABLET PO PRN (11:41)
[2022-02-15 20:56] VITALS: BP 127/81
[2022-02-16] MEDS: QUEtiapine FUMARATE 200 MG TABLET PO SCH ×2 (10:17→20:35)
[2022-02-16 10:51] VITALS: BP 130/72
[2022-02-16 20:20] VITALS: BP 136/83
[2022-02-17 08:30] VITALS: BP 128/80
[2022-02-17] MEDS: QUEtiapine FUMARATE 200 MG TABLET PO SCH ×2 (09:02→20:04)
[2022-02-17 11:51] VITALS: BP 120/74
[2022-02-17] MEDS: ACETAMINOPHEN 325 MG TABLET PO PRN (11:51)
[2022-02-17 20:04] VITALS: BP 140/84
[2022-02-18] MEDS: QUEtiapine FUMARATE 200 MG TABLET PO SCH ×2 (08:29→21:22)
[2022-02-18 08:47] VITALS: BP 132/70
[2022-02-18 12:51] LABS: GLUCOMETER DEV NAME(LOC) POC.BV
[2022-02-18 20:16] VITALS: BP 122/63
[2022-02-19] MEDS: QUEtiapine FUMARATE 200 MG TABLET PO SCH ×2 (08:13→20:15)
[2022-02-19 08:31] VITALS: BP 144/77
[2022-02-19 16:10] VITALS: BP 116/95
[2022-02-19 20:43] VITALS: BP 111/66
[2022-02-20 08:02] VITALS: BP 118/77
[2022-02-20] MEDS: QUEtiapine FUMARATE 200 MG TABLET PO SCH ×2 (09:52→20:04)
[2022-02-20 18:47] VITALS: BP 128/72
[2022-02-20] MEDS: IBUPROFEN 600 MG TABLET PO PRN (18:47)
[2022-02-20 20:04] VITALS: BP 105/69
[2022-02-20] MEDS: ZOLPIDEM TARTRATE 10 MG TABLET PO PRN (20:04)
[2022-02-21 08:42] VITALS: BP 130/88
[2022-02-21] MEDS: QUEtiapine FUMARATE 200 MG TABLET PO SCH ×4 (08:42→20:42)
[2022-02-21] MEDS: IBUPROFEN 600 MG TABLET PO PRN (13:03)
[2022-02-21 20:48] VITALS: BP 134/70
[2022-02-22 08:03] VITALS: BP 130/72
[2022-02-22] MEDS: QUEtiapine FUMARATE 200 MG TABLET PO SCH ×2 (08:18→20:30)
[2022-02-22] MEDS: HALOPERIDOL 5 MG TABLET PO PRN (15:47)
[2022-02-22] MEDS: ACETAMINOPHEN 325 MG TABLET PO PRN (16:43)
[2022-02-22 20:19] VITALS: BP 129/78
[2022-02-23] MEDS: QUEtiapine FUMARATE 200 MG TABLET PO SCH ×2 (09:03→20:28)
[2022-02-23] MEDS: IBUPROFEN 600 MG TABLET PO PRN (09:06)
[2022-02-23 09:14] VITALS: BP 148/95
[2022-02-23 20:30] VITALS: BP 136/89
[2022-02-24] MEDS: QUEtiapine FUMARATE 200 MG TABLET PO SCH ×2 (10:05→20:32)
[2022-02-24 10:09] VITALS: BP 134/83
[2022-02-24] MEDS: HALOPERIDOL 5 MG TABLET PO PRN (13:01)
[2022-02-24] MEDS: IBUPROFEN 600 MG TABLET PO PRN (13:01)
[2022-02-24 20:06] VITALS: BP 135/86
[2022-02-25] MEDS: QUEtiapine FUMARATE 200 MG TABLET PO SCH ×2 (08:06→20:27)
[2022-02-25 08:39] VITALS: BP 132/70
[2022-02-25 09:01] LABS: GLUCOMETER DEV NAME(LOC) POC.BV
[2022-02-25] MEDS: ZOLPIDEM TARTRATE 10 MG TABLET PO PRN (20:26)
[2022-02-25 22:01] VITALS: BP 153/87
[2022-02-26 08:11] VITALS: BP 147/90
[2022-02-26] MEDS: QUEtiapine FUMARATE 200 MG TABLET PO SCH ×2 (08:32→20:21)
[2022-02-26 20:02] VITALS: BP 138/90
[2022-02-27 08:16] VITALS: BP 130/86
[2022-02-27] MEDS: QUEtiapine FUMARATE 200 MG TABLET PO SCH ×2 (08:27→20:29)
[2022-02-27 15:40] VITALS: BP 132/82
[2022-02-27] MEDS: IBUPROFEN 600 MG TABLET PO PRN (15:40)
[2022-02-27 20:15] VITALS: BP 127/84
[2022-02-28 08:11] VITALS: BP 151/88
[2022-02-28] MEDS: QUEtiapine FUMARATE 200 MG TABLET PO SCH ×2 (09:00→21:12)
[2022-02-28] MEDS: IBUPROFEN 600 MG TABLET PO PRN (12:41)
[2022-02-28 20:11] VITALS: BP 106/72
[2022-03-01] MEDS: QUEtiapine FUMARATE 200 MG TABLET PO SCH ×2 (08:15→20:31)
[2022-03-01 20:06] VITALS: BP 129/86
[2022-03-02 06:13] VITALS: BP 133/96
[2022-03-02] MEDS: QUEtiapine FUMARATE 200 MG TABLET PO SCH (08:22)
[2022-03-02 08:59] VITALS: BP 129/91
[2022-03-02] MEDS: IBUPROFEN 600 MG TABLET PO PRN (09:43)
[2022-03-02] MEDS ORDERED: HALOPERIDOL LACTATE 5 MG/ML VIAL IM ONE (13:15)
[2022-03-02] MEDS ORDERED: DiphenhydrAMINE HCL 50 MG/ML VIAL IM ONE (13:15)
[2022-03-02] MEDS ORDERED: LORazepam 2 MG/ML VIAL IM ONE (13:15)
== END 2022-03-02 15:44 | disposition short-term general hospital (02) | DRG 885 ==
LOC: B2X 21:25
PROVIDERS: ADMIT Psychiatry & Neurology Psychiatry; ATTEND Psychiatry & Neurology Psychiatry
DX: F20.9 Schizophrenia, unspecified (principal); F12.10 Cannabis abuse, uncomplicated; F10.10 Alcohol abuse, uncomplicated; F32.A Depression, unspecified; F41.9 Anxiety disorder, unspecified; G47.00 Insomnia, unspecified; K59.00 Constipation, unspecified; Z20.822 Contact with and (suspected) exposure to COVID-19; F17.210 Nicotine dependence, cigarettes, uncomplicated; Z79.899 Other long term (current) drug therapy
CPT/HCPCS: 80053; 80061; 83036; 84439; 84443; 84702; 85025; J1200; J1630; J2060

== ENCOUNTER 2022-03-02 15:05 | Inpatient (IN) | payer MEDICARE, MEDICAID ==
[~2022-03-02] VITALS: Ht 162.6 cm; Wt 119.1 kg
[2022-03-02] MEDS ORDERED: ZOLPIDEM TARTRATE 10 MG TABLET PO PRN (15:45)
[2022-03-02] MEDS: QUEtiapine FUMARATE 200 MG TABLET PO SCH (20:19)
[2022-03-02 21:39] VITALS: BP 153/84
[2022-03-02] MEDS ORDERED: INFLUENZA VIRUS VACCINE QVS 2022-23 (6MO+)/PF 60 MCG/0.5 ML SYRINGE IM. ONE (22:15)
[2022-03-03 07:12] LABS: BASOPHILS % (AUTO) 1.4 % (0.0-2.0); EOSINOPHILS % (AUTO) 2.5 % (1.0-6.0); HEMATOCRIT 32.1 % (36-46); HEMOGLOBIN 10.1 g/dL (12.0-16.0); LYMPHOCYTES # (AUTO) 1.9 K/uL (1.0-4.8); LYMPHOCYTES % (AUTO) 28.4 % (22.0-44.0); MEAN CORPUSCULAR HEMOGLOBIN 24.2 pg (26.0-34.0); MEAN CORPUSCULAR HGB CONC 31.6 G/dL (31.0-37.0); MEAN CORPUSCULAR VOLUME 77 fL (80-100); MONOCYTES # (AUTO) 1.1 K/uL (0.1-1.0); MONOCYTES % (AUTO) 15.5 % (2.0-9.0); NEUTROPHILS # (AUTO) 3.6 K/uL (1.8-7.7); NEUTROPHILS % (AUTO) 52.2 % (40.0-70.0); PLATELET COUNT (AUTO) 340 K/uL (150-450); RED BLOOD CELL COUNT(AUTO) 4.19 MIL/uL (4.00-5.20); RED CELL DISTRIBUTION WIDTH 17.9 % (11.5-14.5)
[2022-03-03 07:34] LABS: ALANINE AMINOTRANSFERASE 18 U/L (12-78); ALBUMIN 3.1 g/dL (3.4-5.0); ALKALINE PHOSPHATASE 50 U/L (46-116); ANION GAP 2 mmol/L (8-16); ASPARTATE AMINOTRANSFERASE 12 U/L (15-37); BILIRUBIN,TOTAL 0.3 mg/dL (0.1-1.0); CALCIUM, TOTAL 8.4 mg/dL (8.8-10.5); CARBON DIOXIDE 29 mmol/L (22-29); CHLORIDE 107 mmol/L (98-107); CHOL/HDL RATIO 3.3 (3.9-5.7); CHOLESTEROL 158 mg/dL (131-200); CREATININE 0.88 mg/dL (0.60-1.30); FREE T4 (FREE THYROXINE) 0.99 ng/dL (0.76-1.46); GLUCOSE,RANDOM 92 mg/dL (70-110); HDL CHOLESTEROL 48 mg/dL (40-60); LDL CHOL (CALC.) 101 mg/dL (0-130); POTASSIUM 4.4 mmol/L (3.5-5.1); SODIUM SERUM 138 mmol/L (136-145); THYROID STIMULATING HORMONE 1.46 uIU/mL (0.36-3.74); TOTAL PROTEIN, SERUM 6.1 g/dL (6.4-8.2); TRIGLYCERIDES 44 mg/dL (15-150); UREA NITROGEN, BLOOD 14 mg/dL (7-18)
[2022-03-03 07:36] LABS: GLOMERULAR FILTR. RATE CALC > 60 mL/min (>60)
[2022-03-03] MEDS: LORazepam 2 MG TABLET PO PRN (08:16)
[2022-03-03] MEDS: QUEtiapine FUMARATE 200 MG TABLET PO SCH ×2 (08:16→20:19)
[2022-03-03 22:15] VITALS: BP 131/82
[2022-03-03] MEDS ORDERED: LOPERAMIDE HCL 2 MG CAPSULE PO PRN (22:30)
[2022-03-03] MEDS ORDERED: CloNIDine HCL 0.1 MG TABLET PO PRN (22:30)
[2022-03-03] MEDS ORDERED: ALBUTEROL SULFATE HFA 90 MCG/PUFF 8 GM INHALER IH PRN (22:30)
[2022-03-03] MEDS ORDERED: BACITRACIN 28 GM OINTMENT TP PRN (22:30)
[2022-03-03] MEDS ORDERED: ONDANSETRON HCL 4 MG TABLET PO PRN (22:30)
[2022-03-03] MEDS ORDERED: DOCUSATE SODIUM 100 MG CAPSULE PO PRN (22:30)
[2022-03-03] MEDS ORDERED: PETROLATUM,WHITE 28 GM JELLY TP PRN (22:30)
[2022-03-03] MEDS ORDERED: BENZOCAINE/MENTHOL LOZENGE PO PRN (22:30)
[2022-03-03] MEDS ORDERED: OMEPRAZOLE 20 MG CAPSULE PO PRN (22:30)
[2022-03-03] MEDS ORDERED: ACETAMINOPHEN 325 MG TABLET PO PRN (22:30)
[2022-03-03] MEDS ORDERED: MAGNESIUM HYDROXIDE SUSPENSION 30 ML UDCUP PO PRN (22:30)
[2022-03-03] MEDS ORDERED: MAG HYDROX/AL HYDROX/SIMETH ES 30 ML SUSPENSION UDCUP PO PRN (22:30)
[2022-03-04] MEDS: LORazepam 2 MG TABLET PO PRN (09:33)
[2022-03-04] MEDS: QUEtiapine FUMARATE 200 MG TABLET PO SCH ×3 (09:34→21:17)
[2022-03-04] MEDS: HALOPERIDOL 5 MG TABLET PO PRN (14:24)
[2022-03-04 14:25] VITALS: BP 150/74
[2022-03-04] MEDS: IBUPROFEN 600 MG TABLET PO PRN (14:25)
[2022-03-04 20:08] VITALS: BP 147/92
[2022-03-05] MEDS: LORazepam 2 MG TABLET PO PRN (08:03)
[2022-03-05] MEDS: QUEtiapine FUMARATE 200 MG TABLET PO SCH ×2 (08:03→20:23)
[2022-03-05] MEDS: HALOPERIDOL 5 MG TABLET PO PRN (08:03)
[2022-03-05 08:12] VITALS: BP 118/79
[2022-03-05 20:26] VITALS: BP 143/81
[2022-03-06] MEDS: QUEtiapine FUMARATE 200 MG TABLET PO SCH ×2 (08:38→20:25)
[2022-03-06 09:54] VITALS: BP 137/84
[2022-03-06 13:56] LABS: GLUCOMETER DEV NAME(LOC) POC.BV
[2022-03-06 23:30] VITALS: BP 110/76
[2022-03-07] MEDS ORDERED: LORazepam 2 MG/ML VIAL ONE (08:57)
[2022-03-07] MEDS ORDERED: LORazepam 2 MG/ML VIAL IM ONE (09:00)
[2022-03-07] MEDS ORDERED: HALOPERIDOL LACTATE 5 MG/ML VIAL IM ONE (09:00)
[2022-03-07] MEDS ORDERED: DiphenhydrAMINE HCL 50 MG/ML VIAL IM ONE (09:00)
[2022-03-07] MEDS: QUEtiapine FUMARATE 200 MG TABLET PO SCH ×2 (10:06→20:08)
[2022-03-07 12:30] VITALS: BP 141/78
[2022-03-07 20:15] VITALS: BP 140/82
[2022-03-08 00:05] VITALS: BP 132/90
[2022-03-08] MEDS: IBUPROFEN 600 MG TABLET PO PRN ×2 (00:17→14:39)
[2022-03-08 08:32] VITALS: BP 140/85
[2022-03-08] MEDS: QUEtiapine FUMARATE 200 MG TABLET PO SCH ×2 (08:56→21:00)
[2022-03-08] MEDS: LORazepam 2 MG TABLET PO PRN (08:58)
[2022-03-08 14:39] VITALS: BP 140/98
[2022-03-08 20:51] VITALS: BP 142/94
[2022-03-09] MEDS: LORazepam 2 MG TABLET PO PRN (08:35)
[2022-03-09] MEDS: QUEtiapine FUMARATE 200 MG TABLET PO SCH ×2 (08:35→20:42)
[2022-03-09 08:55] VITALS: BP 132/88
[2022-03-09 20:00] VITALS: BP 136/84
[2022-03-10] MEDS: QUEtiapine FUMARATE 200 MG TABLET PO SCH ×2 (08:42→21:07)
[2022-03-10 12:06] VITALS: BP 141/78
[2022-03-10] MEDS: LORazepam 2 MG TABLET PO PRN (12:56)
[2022-03-10] MEDS: HALOPERIDOL 5 MG TABLET PO PRN (12:56)
[2022-03-10 20:34] VITALS: BP 134/80
[2022-03-11 08:33] VITALS: BP 133/83
[2022-03-11] MEDS: QUEtiapine FUMARATE 200 MG TABLET PO SCH ×2 (08:51→21:31)
[2022-03-11] MEDS ORDERED: HALOPERIDOL LACTATE 5 MG/ML VIAL IM ONE (16:15)
[2022-03-11] MEDS ORDERED: LORazepam 2 MG/ML VIAL IM ONE (16:15)
[2022-03-11] MEDS ORDERED: DiphenhydrAMINE HCL 50 MG/ML VIAL IM ONE (16:15)
[2022-03-11 20:13] VITALS: BP 132/82
[2022-03-12 08:08] VITALS: BP 142/82
[2022-03-12] MEDS: QUEtiapine FUMARATE 200 MG TABLET PO SCH ×2 (08:24→20:16)
[2022-03-12 20:09] VITALS: BP 108/77
[2022-03-13] MEDS: QUEtiapine FUMARATE 200 MG TABLET PO SCH ×2 (08:30→20:26)
[2022-03-13 09:46] LABS: GLUCOMETER DEV NAME(LOC) POC.BV
[2022-03-13 10:42] VITALS: BP 137/85
[2022-03-13 20:00] VITALS: BP 155/93
[2022-03-14] MEDS: QUEtiapine FUMARATE 200 MG TABLET PO SCH ×2 (08:09→20:22)
[2022-03-14 09:15] VITALS: BP 145/96
[2022-03-14] MEDS: HALOPERIDOL 5 MG TABLET PO PRN (14:12)
[2022-03-14] MEDS: LORazepam 2 MG TABLET PO PRN (14:13)
[2022-03-14] MEDS ORDERED: QUET200T30 PO (19:45)
[2022-03-14 22:27] VITALS: BP 141/84
[2022-03-15 08:24] VITALS: BP 159/111
[2022-03-15] MEDS: QUEtiapine FUMARATE 200 MG TABLET PO SCH (08:37)
== END 2022-03-15 12:41 | disposition home or self-care (01) | DRG 885 ==
LOC: B3A 16:32
PROVIDERS: ADMIT Psychiatry & Neurology Psychiatry; ATTEND Psychiatry & Neurology Psychiatry
DX: F20.9 Schizophrenia, unspecified (principal); F10.10 Alcohol abuse, uncomplicated; F12.10 Cannabis abuse, uncomplicated; Z20.822 Contact with and (suspected) exposure to COVID-19; F32.A Depression, unspecified; F41.9 Anxiety disorder, unspecified; K59.00 Constipation, unspecified; G47.00 Insomnia, unspecified; Z72.0 Tobacco use
CPT/HCPCS: 80053; 80061; 84439; 84443; 85025; J1200; J1630; J2060

== ENCOUNTER 2023-09-30 14:03 | Emergency (ER) | payer MEDICARE, MEDICAID ==
[~2023-09-30] VITALS: Ht 163.8 cm; Wt 123.5 kg
[~2023-09-30 14:03] MED LIST changes: +OLAN5TAB52 PO; -QUET200T30 PO
[2023-09-30 15:03] LABS: BASOPHILS % (AUTO) 1.2 % (0.0-2.0); EOSINOPHILS % (AUTO) 2.3 % (1.0-6.0); HEMATOCRIT 35.9 % (36-46); HEMOGLOBIN 12.2 g/dL (12.0-16.0); LYMPHOCYTES # (AUTO) 1.9 K/uL (1.0-4.8); LYMPHOCYTES % (AUTO) 32.1 % (22.0-44.0); MEAN CORPUSCULAR HEMOGLOBIN 31.7 pg (26.0-34.0); MEAN CORPUSCULAR HGB CONC 33.9 G/dL (31.0-37.0); MEAN CORPUSCULAR VOLUME 93 fL (80-100); MONOCYTES # (AUTO) 0.8 K/uL (0.1-1.0); MONOCYTES % (AUTO) 13.2 % (2.0-9.0); NEUTROPHILS % (AUTO) 51.2 % (40.0-70.0); PLATELET COUNT (AUTO) 371 K/uL (150-450); RED BLOOD CELL COUNT(AUTO) 3.85 MIL/uL (4.00-5.20); RED CELL DISTRIBUTION WIDTH 12.7 % (11.5-14.5); WHITE BLOOD COUNT (AUTO) 5.9 K/uL (4.5-11.0)
[2023-09-30 15:14] LABS: ANION GAP 7 mmol/L (8-16); CALCIUM, TOTAL 8.6 mg/dL (8.8-10.5); CARBON DIOXIDE 27 mmol/L (22-29); CHLORIDE 105 mmol/L (98-107); CREATININE 0.66 mg/dL (0.60-1.30); GLOMERULAR FILTR. RATE CALC > 60 mL/min (>60); GLUCOSE,RANDOM 103 mg/dL (70-110); POTASSIUM 4.3 mmol/L (3.5-5.1); SODIUM SERUM 139 mmol/L (136-145); UREA NITROGEN, BLOOD 18 mg/dL (7-18)
[2023-09-30 15:16] LABS: ALANINE AMINOTRANSFERASE 25 U/L (12-78); ALBUMIN 3.2 g/dL (3.4-5.0); ALKALINE PHOSPHATASE 67 U/L (46-116); ASPARTATE AMINOTRANSFERASE 11 U/L (15-37); BILIRUBIN,TOTAL 0.4 mg/dL (0.1-1.0); TOTAL PROTEIN, SERUM 7.2 g/dL (6.4-8.2)
[2023-09-30 15:19] LABS: ALCOHOL, BLOOD (SERUM) < 3 mg/dL (0-10)
[2023-09-30 15:42] VITALS: TEMP 98.4
[2023-09-30 15:49] LABS: COVID AG,FIA SOURCE NASAL SWAB
[2023-09-30 15:51] LABS: PH,URINE DRUG SCREEN 6.5 (5.0-8.0)
[2023-09-30 15:57] LABS: ALCOHOL, URINE DRUG SCREEN NEGATIVE (NEGATIVE); AMPHET/METH SCREEN,URINE NEGATIVE (NEGATIVE); BARBITURATE SCREEN, URINE NEGATIVE (NEGATIVE); BENZODIAZEPINES SCREEN,URINE NEGATIVE (NEGATIVE); CANNABINOID SCREEN,URINE NEGATIVE (NEGATIVE); COCAINE SCREEN,URINE NEGATIVE (NEGATIVE); METHADONE SCREEN, URINE NEGATIVE (NEGATIVE); OPIATE SCREEN,URINE NEGATIVE (NEGATIVE); PHENCYCLIDINE SCREEN,URINE NEGATIVE (NEGATIVE)
[2023-09-30 16:21] LABS: SARS-COV2 (COVID) ANTIGEN,FIA Negative (Negative)
[2023-09-30] MEDS ORDERED: ZOLPIDEM TARTRATE 10 MG TABLET PO PRN (16:30)
[2023-09-30 17:41] LABS: APPEARANCE,URINE CLEAR (CLEAR); BILIRUBIN,URINE NEGATIVE (NEGATIVE); COLOR,URINE YELLOW (YELLOW); GLUCOSE, URINE (UA) NEGATIVE (NEGATIVE); KETONES,URINE NEGATIVE (NEGATIVE); LEUKOCYTE ESTERASE ,URINE SMALL (NEGATIVE); NITRATE,URINE NEGATIVE (NEGATIVE); OCCULT BLOOD,URINE NEGATIVE (NEGATIVE); PH,URINE 6.5 (5.0-8.0); PROTEIN,URINE NEGATIVE (NEGATIVE)
[2023-09-30 18:31] LABS: BACTERIA,URINE Few /HPF (None Seen); RBC,URINE None Seen /HPF (0-2); SQUAMOUS EPITHELIAL CELL,UR Few /LPF (None Seen)
[2023-10-01] MEDS: NICOTINE 21 MG/24 HOUR PATCH TD ONE (14:50)
[2023-10-01] MEDS: HALOPERIDOL 5 MG TABLET PO PRN (22:32)
[2023-10-01] MEDS: LORazepam 2 MG TABLET PO PRN (22:32)
[2023-10-02 06:42] VITALS: BP 131/80; PULSE 77; RESP 17
== END 2023-10-02 18:30 | disposition left against medical advice (07) ==
LOC: EMS 14:15 → UNDOADMIN 10-02 17:46 → 3EI 10-02 17:46 → EMS 10-02 18:30
DX: F25.9 Schizoaffective disorder, unspecified (principal); F32.9 Major depressive disorder, single episode, unspecified; Z20.822 Contact with and (suspected) exposure to COVID-19; Z53.29 Procedure and treatment not carried out because of patient's decision for other reasons
CPT/HCPCS: 99285; 71045; 87426; 80053; 81001; 85025; 36415; 87491; 87591; 80307 ×2; G0480